=== PATIENT | female | born 1995 | race Caucasian/White ===

== ENCOUNTER 2018-08-15 07:30 | Emergency (ER) | payer OTHER ==
[2018-08-15 07:35] VITALS: RESP 18
[2018-08-15] MEDS ORDERED: SODIUM CHLORIDE 0.9% 2,000 ML IV STA (07:47)
--- NOTE | 2018-08-15 07:55 | ED ---
Abdominal Pain HPI - General Chief Complaint: Abdominal Pain Stated Complaint: abdominal pain Time Seen by Provider: 08/15/18 07:40 Source: patient, RN notes reviewed Mode of arrival: ambulatory Limitations: no limitations - History of Present Illness Initial Comments: 23-year-old female presents emergency Department with chief complaint of upper abdominal pain. Patient states it has been worse over the last 2 weeks. She states initially she thought it was because she ate some bad food. Patient states that is not alleviated she states that she's tried Tums Mylanta Maalox, milk of magnesia patient that she is constipated she did have some mild relief with the and antacids but not full relief. Patient states that when she eats anything symptoms worsen. Patient had no fevers or chills. No back pain or flank pain no chest pain or shortness of breath. Denies any chance . - Related Data Previous Rx's Medication Instructions Recorded Omeprazole [PriLOSEC] 20 mg PO AC-BRKFST #14 cap 08/15/18 Ondansetron Odt [Zofran Odt] 4 mg PO Q8HR PRN #10 tab 08/15/18 Allergies Allergy/AdvReac Type Severity Reaction Status Date / Time No Known Allergies Allergy Verified 08/15/18 07:59 Review of Systems ROS Statement: Those systems with pertinent positive or pertinent negative responses have been documented in the HPI. ROS Other: All systems not noted in ROS Statement are negative. Past Medical History Past Medical History: No Reported History History of Any Multi-Drug Resistant Organisms: None Reported Past Surgical History: No Surgical Hx Reported Past Psychological History: Depression Smoking Status: Current every day smoker Past Alcohol Use History: Occasional Past Drug Use History: Marijuana - Past Family History Mother Family Medical History: No Reported History (Mother is 42-year-old has no major medical problems) Father Family Medical History: No Reported History (Father is 49-year-old has no major medical problems) Sister(s) Family Medical History: No Reported History (Patient has a sister and one half- sister) Brother(s) Family Medical History: No Reported History (Patient had a brother who at age of 22 from overdose) General Exam Limitations: no limitations General appearance: alert, in no apparent distress Head exam: Present: atraumatic, normocephalic, normal inspection Eye exam: Present: normal appearance, PERRL, EOMI. Absent: scleral icterus, conjunctival injection, periorbital swelling ENT exam: Present: normal exam, normal oropharynx, mucous membranes moist, TM's normal bilaterally Neck exam: Present: normal inspection. Absent: tenderness, meningismus, lymphadenopathy Respiratory exam: Present: normal lung sounds bilaterally. Absent: respiratory distress, wheezes, rales, rhonchi, stridor Cardiovascular Exam: Present: normal rhythm, tachycardia, normal heart sounds. Absent: systolic murmur, diastolic murmur, rubs, gallop, clicks GI/Abdominal exam: Present: soft, tenderness (Mild right upper quadrant), normal bowel sounds. Absent: distended, guarding, rebound, rigid Back exam: Absent: CVA tenderness (R), CVA tenderness (L) Skin exam: Present: warm, dry, intact, normal color. Absent: rash Course Vital Signs 08/15/18 07:31 Temperature 99.0 F Pulse Rate 108 H Respiratory 18 Rate Blood Pressure 165/95 O2 Sat by Pulse 95 Oximetry Medical Decision Making - Medical Decision Making This a 23-year-old female presented for abdominal pain, intermittent nausea vomiting diarrhea. Patient has evidence of colitis ices without evidence of acute cholecystitis. Patient is stable for discharge with follow for cholecystectomy. Patient will be discharged with Zofran, omeprazole. Patient will be discharged return parameters were discussed. - Lab Data Result diagrams: 08/15/18 07:57 08/15/18 07:57 Lab Results 08/15/18 08/15/18 08/15/18 Range/Units 07:57 07:57 07:57 WBC 12.9 H (3.8-10.6) k/uL RBC 4.95 (3.80-5.40) m/uL Hgb 12.7 (11.4-16.0) gm/dL Hct 39.1 (34.0-46.0) % MCV 79.0 L (80.0-100.0) fL MCH 25.6 (25.0-35.0) pg MCHC 32.4 (31.0-37.0) g/dL RDW 14.5 (11.5-15.5) % Plt Count 424 (150-450) k/uL Neutrophils % 77 % Lymphocytes % 15 % Monocytes % 4 % Eosinophils % 1 % Basophils % 0 % Neutrophils # 9.9 H (1.3-7.7) k/uL Lymphocytes # 2.0 (1.0-4.8) k/uL Monocytes # 0.5 (0-1.0) k/uL Eosinophils # 0.2 (0-0.7) k/uL Basophils # 0.0 (0-0.2) k/uL Sodium 140 (137-145) mmol/L Potassium 4.2 (3.5-5.1) mmol/L Chloride 106 (98-107) mmol/L Carbon Dioxide 24 (22-30) mmol/L Anion Gap 10 mmol/L BUN 9 (7-17) mg/dL Creatinine 0.52 (0.52-1.04) mg/dL Est GFR (CKD-EPI)AfAm >90 (>60 ml/min/1.73 sqM) Est GFR (CKD-EPI)NonAf >90 (>60 ml/min/1.73 sqM) Glucose 117 H (74-99) mg/dL Calcium 9.5 (8.4-10.2) mg/dL Total Bilirubin 0.4 (0.2-1.3) mg/dL AST 20 (14-36) U/L ALT 36 (9-52) U/L Alkaline Phosphatase 91 (38-126) U/L Total Protein 7.6 (6.3-8.2) g/dL Albumin 4.5 (3.5-5.0) g/dL Amylase 57 (30-110) U/L Lipase 48 (23-300) U/L Urine Color Yellow Urine Appearance Clear (Clear) Urine pH 6.0 (5.0-8.0) Ur Specific Gustavus 1.028 (1.001-1.035) Urine Protein Trace H (Negative) Urine Glucose (UA) Negative (Negative) Urine Ketones Negative (Negative) Urine Blood Negative (Negative) Urine Nitrite Negative (Negative) Urine Bilirubin Negative (Negative) Urine Urobilinogen <2.0 (<2.0) mg/dL Ur Leukocyte Esterase Negative (Negative) Urine HCG, Qual (Not Detectd) 08/15/18 Range/Units 07:57 WBC (3.8-10.6) k/uL RBC (3.80-5.40) m/uL Hgb (11.4-16.0) gm/dL Hct (34.0-46.0) % MCV (80.0-100.0) fL MCH (25.0-35.0) pg MCHC (31.0-37.0) g/dL RDW (11.5-15.5) % Plt Count (150-450) k/uL Neutrophils % % Lymphocytes % % Monocytes % % Eosinophils % % Basophils % % Neutrophils # (1.3-7.7) k/uL Lymphocytes # (1.0-4.8) k/uL Monocytes # (0-1.0) k/uL Eosinophils # (0-0.7) k/uL Basophils # (0-0.2) k/uL Sodium (137-145) mmol/L Potassium (3.5-5.1) mmol/L Chloride (98-107) mmol/L Carbon Dioxide (22-30) mmol/L Anion Gap mmol/L BUN (7-17) mg/dL Creatinine (0.52-1.04) mg/dL Est GFR (CKD-EPI)AfAm (>60 ml/min/1.73 sqM) Est GFR (CKD-EPI)NonAf (>60 ml/min/1.73 sqM) Glucose (74-99) mg/dL Calcium (8.4-10.2) mg/dL Total Bilirubin (0.2-1.3) mg/dL AST (14-36) U/L ALT (9-52) U/L Alkaline Phosphatase (38-126) U/L Total Protein (6.3-8.2) g/dL Albumin (3.5-5.0) g/dL Amylase (30-110) U/L Lipase (23-300) U/L Urine Color Urine Appearance (Clear) Urine pH (5.0-8.0) Ur Specific Gustavus (1.001-1.035) Urine Protein (Negative) Urine Glucose (UA) (Negative) Urine Ketones (Negative) Urine Blood (Negative) Urine Nitrite (Negative) Urine Bilirubin (Negative) Urine Urobilinogen (<2.0) mg/dL Ur Leukocyte Esterase (Negative) Urine HCG, Qual Not Detected (Not Detectd) Disposition Clinical Impression: Abdominal pain, Cholelithiasis Disposition: HOME SELF-CARE Condition: Stable Instructions (If sedation given, give patient instructions): Gallstones (ED), Low Fat Diet (ED) Additional Instructions: Please return to the Emergency Department if symptoms worsen or any other concer ns. Prescriptions: Omeprazole [PriLOSEC] 20 mg PO AC-BRKFST #14 cap Ondansetron Odt [Zofran Odt] 4 mg PO Q8HR PRN #10 tab PRN Reason: Nausea Is patient prescribed a controlled substance at d/c from ED?: No Referrals: None,Stated [Primary Care Provider] - 1-2 days Mane Dias MD [STAFF PHYSICIAN] - 1-2 days Time of Disposition: 09:32
[2018-08-15 08:11] LABS: Basophils % (A) 0 %; Eosinophils # (A) 0.2 k/uL (0-0.7); Eosinophils % (A) 1 %; HCT 39.1 % (34.0-46.0); HGB 12.7 gm/dL (11.4-16.0); Lymphocytes % (A) 15 %; MCH 25.6 pg (25.0-35.0); MCHC 32.4 g/dL (31.0-37.0); Mean Platelet Volume 6.3; Monocytes # (A) 0.5 k/uL (0-1.0); Monocytes % (A) 4 %; Neutrophils # (A) 9.9 k/uL (1.3-7.7); Neutrophils % (A) 77 %; Platelet Count 424 k/uL (150-450); RBC 4.95 m/uL (3.80-5.40); RDW 14.5 % (11.5-15.5); WBC 12.9 k/uL (3.8-10.6)
[2018-08-15 08:15] LABS: Appearance,Urine Clear (Clear); Bilirubin,Urine Negative (Negative); Blood,Urine Negative (Negative); Color,Urine Yellow; Glucose,Urine (UA) Negative (Negative); Ketones,Urine Negative (Negative); Leukocyte Esterase,Urine Negative (Negative); Nitrite,Urine Negative (Negative); Protein,Urine Trace (Negative); Specific Gravity,Urine 1.028 (1.001-1.035); Urobilinogen,Urine <2.0 mg/dL (<2.0)
[2018-08-15 08:20] LABS: ALT 36 U/L (9-52); AST 20 U/L (14-36); Albumin 4.5 g/dL (3.5-5.0); Alkaline Phosphatase 91 U/L (38-126); Amylase 57 U/L (30-110); Anion Gap 10 mmol/L; Blood Urea Nitrogen 9 mg/dL (7-17); Calcium 9.5 mg/dL (8.4-10.2); Carbon Dioxide 24 mmol/L (22-30); Chloride 106 mmol/L (98-107); Glucose 117 mg/dL (74-99); Lipase 48 U/L (23-300); Potassium 4.2 mmol/L (3.5-5.1); Sodium 140 mmol/L (137-145); Total Bilirubin 0.4 mg/dL (0.2-1.3); Total Protein 7.6 g/dL (6.3-8.2)
--- NOTE | 2018-08-15 08:50 | US ---
EXAMINATION TYPE: US gallbladder DATE OF EXAM: 08/15/2018 COMPARISON: NONE CLINICAL HISTORY: Pain. RUQ pain and N/V x 2 weeks EXAM MEASUREMENTS: Liver Length: 18.7 cm Gallbladder Wall: 0.2 cm CBD: 0.7 cm Right Kidney: 11.8 x 5.4 x 5.3 cm Pancreas: visualized portions wnl, partially obscured by overlying midline bowel gas Liver: Increased attenuation Gallbladder: hydropic, multiple echogenic shadowing stones with 1.8cm stone within neck, wall measur es wnl Evidence for sonographic Myers's sign: yes CBD: Minimally dilated Right Kidney: wnl The visualized pancreas shows no worrisome mass or ductal dilatation though portions are suboptimally evaluated-weighted as there is overlying bowel gas per technologist. Visualized liver is heterogeneo us without intrahepatic ductal dilatation. Evaluation for focal masses is suboptimal due to the heter ogeneity. Findings suspect basis of early diffuse fatty infiltration. Gallbladder is seen with large shadowing mobile gallstone. There is nonmobile shadowing stone towards the gallbladder neck. There is no pericholecystic fluid or abnormal gallbladder wall thickening. Common bile duct measures 7 mm whi ch is minimally dilated. IMPRESSION: Gallstones without definitive secondary ultrasound evidence for acute cholecystitis howev er in patient with pain and vomiting and positive sonographic Myers's sign it cannot be excluded. Co nsider HIDA scan or surgical exploration based on degree of clinical suspicion.
[2018-08-15 10:09] VITALS: BP 137/104; PULSE 81; TEMP 98.7
== END 2018-08-15 10:05 | disposition home or self-care (01) ==
LOC: EC 07:30
DX: K80.20 Calculus of gallbladder without cholecystitis without obstruction (principal); F17.200 Nicotine dependence, unspecified, uncomplicated
CPT/HCPCS: 36415; 76705; 80053; 81003; 81025; 82150; 83690; 85025; 96360; 96361; 99284

== ENCOUNTER 2018-08-31 07:37 | Day surgery (SDC) | payer OTHER ==
[2018-08-26 11:48] VITALS: BMI 39.0
[~2018-08-31 07:37] MED LIST: DEXAMETHASONE SOD PHOSPHATE 10 MG/ML 1 ML VIAL IV ONE; HEPARIN SODIUM,PORCINE 5,000 UNIT/ML 1 ML VIAL SQ ONE; LACTATED RINGERS 1,000 ML IV SCH; LIDOCAINE 1% 20 ML VIAL (10MG/ML) FOR IV START INTRADERMA PRN; MIDAZOLAM 2 MG/2 ML VIAL IV PRN; ceFAZolin IN SWFI 2 GM/20 ML SYRINGE IVP ONE; fentaNYL (PF) 50 MCG/ML 2 ML AMP IV PRN
[2018-08-31] MEDS ORDERED: ONDANSETRON 4 MG/2 ML VIAL IVP ONE (08:35)
--- NOTE | 2018-08-31 09:21 | P.GSHP ---
History of Present Illness H&P Date: 08/31/18 Chief Complaint: Right upper quadrant pain This a 23-year-old female who presents today for laparoscopic cholecystectomy. Patient is a complete upper quadrant pain. Her recent ultrasound shows evidence of cholelithiasis. Past Medical History Past Medical History: No Reported History History of Any Multi-Drug Resistant Organisms: None Reported Past Surgical History: No Surgical Hx Reported Additional Past Anesthesia/Blood Transfusion Reaction / Comment(s): Has never had general anesthesia. Past Psychological History: Anxiety, Depression Smoking Status: Current every day smoker Past Alcohol Use History: Occasional Additional Past Alcohol Use History / Comment(s): Has been smoking 4 yrs, 1 pack Q3-4 days. Past Drug Use History: Marijuana Additional Drug Use History / Comment(s): Uses Marijuana 1-2X/month. - Past Family History Mother Family Medical History: No Reported History Father Family Medical History: No Reported History Sister(s) Family Medical History: No Reported History Brother(s) Family Medical History: No Reported History Medications and Allergies Home Medications Medication Instructions Recorded Confirmed Type No Known Home Medications 08/26/18 08/31/18 History Allergies Allergy/AdvReac Type Severity Reaction Status Date / Time No Known Allergies Allergy Verified 08/31/18 08:11 Surgical - Exam Vital Signs Temp Pulse Resp BP Pulse Ox 98.5 F 84 16 144/74 97 08/31/18 08:22 08/31/18 08:22 08/31/18 08:22 08/31/18 08:22 08/31/18 08:22 - General well developed, well nourished, no distress - Eyes PERRL - ENT normal pinna - Neck no masses - Respiratory normal expansion - Cardiovascular Rhythm: regular - Abdomen Abdomen: soft, non tender Assessment and Plan Assessment: Cholelithiasis Chronic cholecystitis We'll perform laparoscopic cholecystectomy.
[2018-08-31] MEDS ORDERED: ROCURONIUM BROMIDE 10 MG/ML 10 ML VIAL IV ONE (09:42)
[2018-08-31] MEDS ORDERED: GLYCOPYRROLATE 0.2 MG/ML 2 ML VIAL ONE (09:42)
[2018-08-31] MEDS ORDERED: KETOROLAC 30 MG/ML 1 ML VIAL ONE (09:42)
[2018-08-31] MEDS ORDERED: MIDAZOLAM 2 MG/2 ML VIAL ONE (09:42)
[2018-08-31] MEDS ORDERED: SUCCINYLCHOLINE CHLORIDE VIAL 200 MG/10 ML VIAL IV ONE (09:42)
[2018-08-31] MEDS ORDERED: fentaNYL (PF) 50 MCG/ML 2 ML AMP ONE (09:42)
[2018-08-31] MEDS ORDERED: NEOSTIGMINE 1 MG/ML 10 ML VIAL ONE (09:42)
[2018-08-31] MEDS ORDERED: LIDOCAINE 1% INJ 10MG/ML (20 ML MDV) ONE (09:42)
[2018-08-31] MEDS ORDERED: PROPOFOL 10 MG/ML 20 ML VIAL IV ONE (09:42)
[2018-08-31] MEDS ORDERED: BUPIVACAIN-EPI 0.5%-1:200,000 30 ML VIAL SQ ONE ×2 (09:47→10:08)
--- NOTE | 2018-08-31 10:44 | P.OP ---
Date of Procedure: 08/31/18 Preoperative Diagnosis: Cholecystitis Postoperative Diagnosis: Acute cholecystitis Hydropic gallbladder Cholelithiasis Procedure(s) Performed: Laparoscopic cholecystectomy Anesthesia: CORINNA Surgeon: Mane Dias Estimated Blood Loss (ml): 5 Pathology: other (Gallbladder) Condition: stable Disposition: PACU Description of Procedure: The patient was placed on the operating table. The patient received a general endotracheal tube anesthesia. The patients abdomen was prepped and draped in the usual sterile fashion. Through an infraumbilical stab incision, the fascia of the anterior abdominal wall was grasped with a pair of Kochers and then the Veress needle was placed in the peritoneal cavity. Position of the Veress needle was confirmed with positive drop test. The abdomen was then insufflated. After adequate insufflation, the 10 mm trocar was placed in the peritoneal cavity. Following this the laparoscope was placed in the peritoneal cavity. The patient was placed in the head-up, right side up position and then a 5 mm trocar was placed in the right lateral and right subcostal position under direct visualization. A 8 mm trocar was placed in the epigastric position. The gallbladder was hydropic. He was quite inflamed. The omentum was adhesed to gallbladder. This was lysed with sharp dissection and electrocautery. The gallbladder was so distended it could not be grasped. Using Harmonic scissors and opening was made in the gallbladder and the gallbladder was aspirated. There was a significant amount mucus in the gallbladder. The gallbladder wall was quite thick. The gallbladder was grasped in the fundus and infundibulum. Traction on the gallbladder was placed in the lateral and the cephalad positions. The triangle of Calot was visualized.. The cystic duct was bluntly dissected until the union of the cystic duct and common bile duct was seen. A critical view of safety was achieved. The cystic duct was then divided and sealed with the Harmonic scissors. A PDS Endoloop was then placed throughout the cystic duct stump. The cystic artery divided and sealed with the Harmonic scissors. The gallbladder was then removed from the liver bed using Harmonic scissors. The gallbladder was then extracted through the epigastric port site. Operative field was checked for any bleeding spots and Harmonic scissors was used to coagulate the liver bed. The abdomen was irrigated. The trocars were removed. The skin was closed using interrupted 3-0 Vicryl suture. Dermabond dressing were applied. The patient tolerated the procedure well.
[2018-08-31 10:54] VITALS: TEMP 97
[2018-08-31] MEDS ORDERED: LACTATED RINGERS 1,000 ML IV ONE (11:30)
[2018-08-31 12:16] VITALS: BP 120/80; PULSE 89; RESP 18
== END 2018-08-31 12:52 | disposition home or self-care (01) ==
LOC: OR 07:37
PROVIDERS: ATTEND Surgery
DX: K80.12 Calculus of gallbladder with acute and chronic cholecystitis without obstruction (principal); F17.210 Nicotine dependence, cigarettes, uncomplicated
CPT/HCPCS: 81025; 88304

== ENCOUNTER → 2022-10-08 | Outpatient (CLI) | payer MEDICAID, OTHER ==
--- NOTE | 2022-10-08 15:16 | US ---
EXAMINATION TYPE: US OB >= 14 wk fetus DATE OF EXAM: 10/08/2022 COMPARISON: None CLINICAL INDICATION: Female, 27 years old with history of Z36.89 ENCOUNTER FOR OTHER SPECIFIED ANTENA DONALDO SCR; confirm dates TECHNIQUE: Transabdominal (TA) GESTATIONAL AGE / DATING Dates by First Scan: (14 weeks/3 days) EDC: 04/05/23 Dates by Current Scan: (15 weeks/0 days) EDC: 04/01/23 SURVEY IUP: Single PLACENTA: Anterior PREVIA: No Previa PHILLIP: 11.9 cm Normal CERVICAL LENGTH (transabdominal: norm > 3.0cm): 4.2 cm BIOMETRY PRESENTATION: Vertex LIE: Longitudinal BPD: 2.9 cm 15 weeks / 2 days HC: 10.5 cm 15 weeks / 0 days AC: 8.9 cm 15 weeks / 1 days FL: 1.5 cm 14 weeks / 3 days ESTIMATED WEIGHT IN GRAMS: 107 grams ESTIMATED WEIGHT IN LBS/OZ: 0 lbs. 4 oz. WEIGHT PERCENTAGE BASED ON ESTABLISHED DATES: 63% HC/AC: 1.18 Normal FL/AC: 17% HEART RATE: 165 bpm RHYTHM: Normal small cyst measured on rt ovary. Difficulty obtaining measurement for exam due to machine errors, mov ed patient to another machine to obtain measurements. IMPRESSION: Single live intrauterine gestation with estimated gestational age of 15 weeks 0 days and estimated du e date of 04/01/2023.
== END | disposition home or self-care (01) ==
LOC: RADUSWWP 13:33
PROVIDERS: ATTEND Obstetrics & Gynecology
DX: Z36.89 Encounter for other specified antenatal screening (principal); Z3A.15 15 weeks gestation of pregnancy
CPT/HCPCS: 76805

== ENCOUNTER 2023-03-16 07:52 | Inpatient (IN) | payer OTHER ==
[2023-03-16] MEDS ORDERED: TRANEXAMIC 1,000 MG/100ML-NACL 1,000 MG in EMPTY BAG 1 BAG IV PRN (08:54)
[2023-03-16] MEDS ORDERED: CARBOPROST TROMETHAMINE 250 MCG/ML 1 ML AMP IM PRN (08:54)
[2023-03-16] MEDS ORDERED: TERBUTALINE 1 MG/ML VIAL SQ PRN (08:54)
[2023-03-16] MEDS ORDERED: LIDOCAINE 0.5% (PF) 5 MG/ML (50 ML SDV) SQ PRN (08:54)
[2023-03-16] MEDS ORDERED: miSOPROStoL 200 MCG TAB PO PRN (08:54)
[2023-03-16] MEDS ORDERED: METHYLERGONOVINE 0.2 MG/ML 1 ML AMP IM PRN (08:54)
[2023-03-16] MEDS ORDERED: OXYTOCIN 10 UNIT/ML 1 ML VIAL IM PRN (08:54)
[2023-03-16] MEDS ORDERED: OXYTOCIN 30 UNITS/500 ML NS 30 UNIT in SALINE 1 500ML.BAG IV SCH (09:00)
--- NOTE | 2023-03-16 09:03 | P.HPOB ---
History of Present Illness H&P Date: 03/16/23 Chief Complaint: Spontaneous rupture membranes This is a 27-year-old female 1 para 0 with an estimated date of confinement of 03/28/2023, estimated gestational age of 38-2/7 weeks, who presented to labor and delivery with complaints of spontaneous rupture membranes at 6:30 AM this morning. She denies feeling any strong contractions. Her course was essentially uncomplicated. Her 36 week ultrasound gave an estimated weight of 7 lbs. 9 oz. at greater than 90th percentile. She was scheduled for another ultrasound tomorrow to determine whether or not we would schedule section after 39 weeks. She is currently okay with proceeding with labor but does understand there is a possibility of the need for delivery if she fails to progress for fails to descend. Her 1 hour Glucola was elevated at 160 but 3 hour Glucola was within normal limits. Her blood pressures were elevated initially in triage. She denies any current headaches blurry vision or epigastric pain. labs: Group B streptococcus-negative One hour Glucola-160 Three-hour Glucola-within normal limits Hemoglobin-13.1 Blood type-B+ Antibody screen-negative Rubella-immune Toxoplasma-negative RPR-nonreactive HIV-nonreactive Hepatitis C antibody-nonreactive GC/Chlamydia/Trichomonas-negative Obstetrical history: . Gynecologic history: No history of section diseases. Social history: She is single. She is unemployed. Review of Systems Constitutional: Denies chills, Denies fever Eyes: denies blurred vision, denies pain Ears, nose, mouth and throat: Denies headache, Denies sore throat Cardiovascular: Denies chest pain, Denies shortness of breath Respiratory: Denies cough Gastrointestinal: Reports abdominal pain (Contractions, irregular) Genitourinary: Reports pelvic pain, Reports Musculoskeletal: Reports low back pain Integumentary: Denies pruritus, Denies rash Neurological: Denies numbness, Denies weakness Psychiatric: Reports anxiety, Reports depression Past Medical History Past Medical History: No Reported History History of Any Multi-Drug Resistant Organisms: None Reported Past Surgical History: Cholecystectomy Past Anesthesia/Blood Transfusion Reactions: No Reported Reaction Additional Past Anesthesia/Blood Transfusion Reaction / Comment(s): Has never had general anesthesia. Past Psychological History: Anxiety, Depression Smoking Status: Former smoker Past Alcohol Use History: None Reported Past Drug Use History: Marijuana (Quit with ) - Past Family History Mother Family Medical History: No Reported History Father Family Medical History: Diabetes Mellitus, Hypertension Sister(s) Family Medical History: No Reported History Brother(s) Family Medical History: No Reported History Medications and Allergies Home Medications Medication Instructions Recorded Confirmed Type No Known Home Medications 03/16/23 03/16/23 History Allergies Allergy/AdvReac Type Severity Reaction Status Date / Time No Known Allergies Allergy Verified 03/16/23 08:15 Exam Osteopathic Statement: *. No significant issues noted on an osteopathic structural exam other than those noted in the History and Physical/Consult. Vital Signs Temp Pulse Resp BP Pulse Ox 03/16/23 08:14 97.9 F 116 H 16 138/101 97 Intake and Output 03/15/23 03/16/23 03/16/23 22:59 06:59 14:59 Other: Weight 140.614 kg HEENT: Within normal limits Heart: Regular rate and rhythm Lungs: Clear to auscultation bilaterally Abdomen: Cervix: 1-1/2 cm/60%/-2 station with grossly ruptured clear fluid. Amnisure-positive Extremities: Negative Homans heart tones: Category 1 Contractions: Every 2-3 minutes Assessment and Plan (1) 38 weeks gestation of Current Visit: Yes Status: Acute Code(s): Z3A.38 - 38 WEEKS GESTATION OF SNOMED Code(s): 73584126 (2) Spontaneous rupture of membranes Current Visit: Yes Status: Acute Code(s): LKC3039 - SNOMED Code(s): 079721195 (3) Elevated blood pressure complicating in third trimester, antepartum Current Visit: Yes Status: Acute Code(s): O16.3 - UNSPECIFIED MATERNAL HYPERTENSION, THIRD TRIMESTER SNOMED Code(s): 96099224 Plan: Will admit for early active labor. We'll obtain preeclamptic labs. We'll start oxytocin augmentation of labor. I had a discussion with the patient and she is fine with continuing with proceeding towards vaginal delivery at this time. If there is any dystocia of labor, the threshold for calling for delivery may be slightly lower.
[2023-03-16] MEDS: LACTATED RINGERS 1,000 ML IV SCH ×3 (09:38→20:05)
[2023-03-16 09:49] LABS: Basophils % (A) 0 %; Eosinophils # (A) 0.1 k/uL (0-0.7); Eosinophils % (A) 1 %; HCT 30.5 % (34.0-46.0); HGB 10.2 gm/dL (11.4-16.0); Hypochromasia Slight; Lymphocytes # (A) 2.6 k/uL (1.0-4.8); Lymphocytes % (A) 19 %; MCHC 33.5 g/dL (31.0-37.0); MCV 74.8 fL (80.0-100.0); Mean Platelet Volume 8.4; Microcytosis Slight; Monocytes # (A) 0.6 k/uL (0-1.0); Monocytes % (A) 4 %; Neutrophils # (A) 9.9 k/uL (1.3-7.7); Neutrophils % (A) 74 %; Platelet Count 317 k/uL (150-450); Poikilocytosis Slight; RBC 4.08 m/uL (3.80-5.40); WBC 13.4 k/uL (3.8-10.6)
[2023-03-16 10:09] LABS: ALT 76 U/L (4-34); AST 54 U/L (14-36); African American GFR (CKD) >90 (>60 ml/min/1.73 sqM); Blood Urea Nitrogen 7 mg/dL (7-17); Non-African American GFR(CKD) >90 (>60 ml/min/1.73 sqM); Uric Acid 3.5 mg/dL (3.7-7.4)
[2023-03-16 10:55] LABS: Creatinine,Urine Random 303.1 mg/dL; Protein/Creatinine Ratio,Urine 0.129
[2023-03-16] MEDS ORDERED: NALBUPHINE 10 MG/ML (10 ML MDV) IV PRN (17:28)
--- NOTE | 2023-03-16 17:42 | P.MSEPDOC ---
Presenting Problems - Arrival Data Date of Arrival on Unit: 03/16/23 Time of Arrival on Unit: 08:30 Mode of Transport: Ambulatory - Complaint OB-Reason for Admission/Chief Complaint: Rule Out SROM Comment: clear fluid 629 Medical History - Information : 1 Para: 0 Term: 0 : 0 Abortions: Spontaneous or Elective: 0 Number of Living Children: 0 - Gestational Age Gestational Age by GEN (wks/days): 38 Weeks and 2 Days Review of Systems - Review of Systems Constitutional: No problems Breast: No problems ENT: No problems Cardiovascular: No problems Respiratory: No problems Gastrointestinal: No problems Genitourinary: No problems Musculoskeletal: No problems Neurological: No problems Skin: No problems Vital Signs - Temperature Temperature: 97.4 F Temperature Source: Oral - Pulse Right Pulse Rate: 111 Pulse Assessment Method: Automatic Cuff - Respirations Respiratory Rate: 14 Oxygen Delivery Method: Room Air - Blood Pressure Right Arm Blood Pressure: 130/90 Blood Pressure Mean: 103 Blood Pressure Source: Automatic Cuff Medical Screen Scoring - Cervical Exam Dilation (cm): 1 Effacement (%): 50 Station: -3 Membranes: Ruptured - Uterine Contractions Frequency From (mins): 2 Frequency To (mins): 3 Duration From (seconds): 60 Duration To (seconds): 80 Intensity: Mild Resting: Soft to palpation - Assessment - Baby A Baseline FHR: 155 Heart Rate - NICHD Category: Category I (Normal) NST: Reactive Physician Notification - Physician Notified Physician Notified Date: 03/16/23 Physician Notified Time: 08:30 Physician: Shereen Johnson Order Received: Yes (admit augmentation pitocin, PIH labs) Maternal Triage Index - Non-Urgent/Priority 4 Non-Urgent Priority 4: Yes Criteria Met for Priority 4: 38.2 SROM Disposition - Disposition OB Disposition: Admit, LDRP Suite I agree with the RN Medical Screening Exam: Yes Case reviewed; plan agreed upon as documented in EMR&OBIX.: Yes Diagnosis: ENCOUNTER FOR FULL-TERM UNCOMPLICATED DELIVERY Additional Diagnoses: Gestational htn
[2023-03-16] MEDS ORDERED: SODIUM CHLORIDE 0.9% 250 ML BAG ONE (19:40)
[2023-03-16] MEDS ORDERED: fentaNYL (PF) 50 MCG/ML 5 ML AMP ONE (19:40)
[2023-03-16] MEDS ORDERED: ROPIVACAINE 5 MG/ML 30 ML VIAL ONE (19:40)
[2023-03-16] MEDS ORDERED: AMPICILLIN 2,000 MG in SODIUM CHLORIDE 0.9% 100 ML IVPB ONE (22:00)
[2023-03-17] MEDS ORDERED: AMPICILLIN 1,000 MG in SODIUM CHLORIDE 0.9% 50 ML IVPB SCH (02:00)
[2023-03-17] MEDS ORDERED: HYDROCORTISONE 2.5% RECTAL CREAM 30 GM TUBE RECTAL PRN (04:28)
[2023-03-17] MEDS ORDERED: LANOLIN CREAM 5 GM TUBE TOPICAL PRN (04:28)
[2023-03-17] MEDS ORDERED: ACETAMINOPHEN TAB 325 MG TAB PO PRN (04:28)
[2023-03-17] MEDS ORDERED: ZOLPIDEM 5 MG TAB PO PRN (04:28)
[2023-03-17] MEDS ORDERED: diphenhydrAMINE 50 MG/ML 1 ML VIAL IVP PRN (04:28)
[2023-03-17] MEDS ORDERED: BENZOCAINE/MENTHOL SPRAY 1 GM/SPRAY AEROSOL TOPICAL PRN (04:28)
[2023-03-17] MEDS ORDERED: IBUPROFEN 600 MG TAB PO PRN (04:28)
[2023-03-17] MEDS ORDERED: SIMETHICONE 80 MG CHEWABLE PO PRN (04:28)
[2023-03-17] MEDS ORDERED: diphenhydrAMINE 25 MG CAP PO PRN (04:28)
[2023-03-17] MEDS ORDERED: bisacodyL 10 MG SUPP RECTAL PRN (04:28)
--- NOTE | 2023-03-17 04:28 | P.PROBDLV ---
Vaginal Delivery Note - . Vaginal Delivery Note: Vaginal delivery viable female Apgars 7 and 9 delivery time 0351 hours. Please see dictated H&P per Dr. Johnson on this patient's admission. In brief summary this is a 27-year-old 1 para 0 female 38-2/7 weeks who is admitted to labor and delivery with spontaneous rupture membranes at 6:30 in the morning yesterday. Patient also had some elevated blood pressures and preeclampsia evaluation was done per Dr. Johnson. Patient had known macrosomia and wished trial of labor. 1-2 cm dilated on admission. Patient is given Pitocin induction of labor. She does not change much throughout the day. At approximately 7 or 8:00 last evening she became uncomfortable and requested an epidural for pain control. Patient gets this with good relief. Antibiotics as started at 2200 hrs. as well due to prolonged rupture. Labor progresses thereafter quickly and she gets to complete. She pushes the head to the perineum after 20 minutes. Posterior perineum is supported we have controlled delivery of the infant's head over the intact perineum. Mouth and nares are bulb suctioned. The is straight occiput anterior presentation. At this time the patient was instructed to breath, however she continues to push and spontaneously delivers the anterior and posterior shoulder and rest this infant's body. This is a vigorous viable female infant Apgars are 7 and 9 delivery time was 0351 hrs. has spontaneous respirations and good cry an d grossly appears normal. After delivery of the infant the umbilical cords doubly clamped and cut. The is laid on the mother's abdomen. I inspected the cord at this time it appears that is inserted on a membranous portion of the placenta. Patient is encouraged to push I'm able to help deliver the placenta in its entirety with maternal effort. Inspection of the placenta shows membranous insertion. Placenta appears to be intact without defects. Inspection of perineum shows second-degree laceration that is easily repaired with 3-0 Vicryl. Excellent reapproximation is noted. Estimated blood loss is approximately 100 mL. All counts are correct 3. There are no complications. and mother stable delivery room.
[2023-03-17] MEDS ORDERED: OXYTOCIN 30 UNITS/500 ML NS 30 UNIT in SALINE 1 500ML.BAG IV SCH (04:30)
[2023-03-17 05:36] VITALS: RESP 16
[2023-03-17] MEDS: SENNOSIDES-DOCUSATE SODIUM 1 EACH TAB PO SCH ×2 (08:35→20:25)
[2023-03-17] MEDS: LABETALOL 100 MG TAB PO SCH ×2 (14:03→20:25)
[2023-03-17] MEDS: LACTATED RINGERS 1,000 ML IV SCH (22:11)
[2023-03-18 00:21] VITALS: TEMP 97.9
[2023-03-18] MEDS: SENNOSIDES-DOCUSATE SODIUM 1 EACH TAB PO SCH (08:05)
[2023-03-18] MEDS: LABETALOL 100 MG TAB PO SCH (08:06)
[2023-03-18 08:11] LABS: Basophils % (A) 0 %; Eosinophils # (A) 0.1 k/uL (0-0.7); Eosinophils % (A) 1 %; HCT 29.4 % (34.0-46.0); HGB 9.5 gm/dL (11.4-16.0); Hypochromasia Moderate; Lymphocytes # (A) 3.7 k/uL (1.0-4.8); Lymphocytes % (A) 27 %; MCH 24.6 pg (25.0-35.0); MCHC 32.4 g/dL (31.0-37.0); Mean Platelet Volume 8.4; Microcytosis Slight; Monocytes # (A) 0.7 k/uL (0-1.0); Monocytes % (A) 5 %; Neutrophils # (A) 9.1 k/uL (1.3-7.7); Neutrophils % (A) 65 %; Platelet Count 267 k/uL (150-450); RBC 3.86 m/uL (3.80-5.40); RDW 14.9 % (11.5-15.5); WBC 13.9 k/uL (3.8-10.6)
[2023-03-18 08:13] VITALS: BP 149/89; PULSE 84
--- NOTE | 2023-03-18 09:25 | P.DS ---
Providers Date of admission: 03/16/23 09:08 Expected date of discharge: 03/18/23 Attending physician: Shereen Johnson Primary care physician: Stated None - Discharge Diagnosis(es) (1) 38 weeks gestation of Current Visit: Yes Status: Acute (2) Spontaneous rupture of membranes Current Visit: Yes Status: Acute (3) Elevated blood pressure complicating in third trimester, antepartum Current Visit: Yes Status: Acute Hospital Course: This is a 27 year old female 1 para 0 at 38-2/7 weeks who presented with spontaneous rupture of membranes. She is also noted to have elevated blood pressures. Preeclamptic workup was performed and protein to creatinine ratio was within normal limits however her liver enzymes were slightly elevated. She delivered vaginally a viable female on 03/17/2023 with scores of 7 at 1 minute and 9 at 5 minutes and weight of 8 lbs. 12 oz. , she did start having some elevated blood pressures and was started on labetalol 100 mg twice a day. This has kept her blood pressures fairly well controlled. She denies any other symptoms. Lochia is decreasing. Pain is well-controlled. She is breast-feeding. Vital signs are stable. Abdomen is soft with fundus firm and nontender. Extremities show negative Homans. Impression is status post vaginal delivery day #1, gestational hypertension. Plan is to discharge home today. Routine instructions are given. She will be given a prescription for ibuprofen and labetalol 100 mg twice a day. She is advised to follow up in the office in approximately 1 week for a blood pressure check and in 6 weeks for a check. She is advised to call the office if she has any further questions or concerns prior to her appointment time. Procedures: Spontaneous vaginal delivery of a viable female infant on 03/17/2023 Patient Condition at Discharge: Stable Plan - Discharge Summary New Discharge Prescriptions: New Ibuprofen [Motrin] 600 mg PO Q6HR PRN #60 tab PRN Reason: Mild Pain (Scale 1 To 3) Labetalol [Trandate] 100 mg PO BID #60 tab Discharge Medication List Ibuprofen [Motrin] 600 mg PO Q6HR PRN #60 tab 03/18/23 [Rx] Labetalol [Trandate] 100 mg PO BID #60 tab 03/18/23 [Rx] Follow up Appointment(s)/Referral(s): Shereen Johnson DO [Doctor of Osteopathic Medicine] - 04/20/23 11:30 am (Follow-up in 1 week for a blood pressure check) Activity/Diet/Wound Care/Special Instructions: Instructions 1. Do not begin any exercise program for 3 weeks. 2. Do not resume sexual relations for 3 weeks or longer if uncomfortable. 3. You may take tub baths or showers at any time. 4. You may use tampons if desired after 3 weeks. 5. Keep the area of episiotomy (stitches) clean and dry. 6. If you are not nursing, wear a good fitting, supportive bra during the day and limit fluid intake for at least 1 week to prevent breast engorgement. 7. Call the office, [phone], within the next week to make appointment for your 6 week checkup if it has not already been made. 8. Report any of the following occurrences to the doctor promptly: a. Heavy, excessive bleeding b. Chills, fever c. Burning or frequency of urination d. Pain or redness and breasts if nursing e. Increasing pain or swelling in episiotomy (stitches). In addition to the above instructions, the following additional should be followed: 1. No heavy lifting or straining (exercising) until after 6 week checkup. 2. Keep abdominal incision clean and dry: You may wear a dressing if more comfortable. 3. Make office appointment for 10 days after going home or as instructed by her doctor. Discharge Disposition: HOME SELF-CARE
== END 2023-03-18 15:45 | disposition home or self-care (01) | DRG 560 ==
LOC: FBPOP 07:52 → 4FBP 09:08
PROVIDERS: ADMIT Obstetrics & Gynecology; ATTEND Obstetrics & Gynecology
PROC: 10E0XZZ Delivery of Products of Conception, External Approach (ICD-10-PCS; principal; 2023-03-17)
PROC: 0KQM0ZZ Repair Perineum Muscle, Open Approach (ICD-10-PCS; 2023-03-17)
PROC: 3E033VJ Introduction of Other Hormone into Peripheral Vein, Percutaneous Approach (ICD-10-PCS; 2023-03-17)
DX: O42.92 Full-term premature rupture of membranes, unspecified as to length of time between rupture and onset of labor (principal); F32.A Depression, unspecified; F41.9 Anxiety disorder, unspecified; O36.63X0 Maternal care for excessive fetal growth, third trimester, not applicable or unspecified; O70.1 Second degree perineal laceration during delivery; O99.344 Other mental disorders complicating childbirth; Z37.0 Single live birth; Z3A.38 38 weeks gestation of pregnancy; Z82.49 Family history of ischemic heart disease and other diseases of the circulatory system; Z87.891 Personal history of nicotine dependence
CPT/HCPCS: 59025; 82565; 82570; 84112; 84156; 84450; 84460; 84520; 84550; 85025; 86850; 86900; 86901; 99213

== ENCOUNTER → 2023-06-02 | Outpatient (CLI) | payer OTHER ==
--- NOTE | 2023-06-02 15:52 | US ---
EXAMINATION TYPE: US pelvis complete transvag DATE OF EXAM: 06/02/2023 COMPARISON: NONE CLINICAL INDICATION: Female, 28 years old with history of N92.1 EXCESSIVE AND FREQUENT MENSTRUATION; patient delivered on 03/17 has had heavy bleeding and clots x 2 months after, now only has spotting TECHNIQUE: Transvaginal (TV) and Transabdominal (TA) . Transabdominal sonographic images of the pel vis were acquired. Transvaginal sonographic images were medically necessary to better assess the fol lowing anatomy: Ovaries Date of LMP: unsure EXAM MEASUREMENTS: Uterus: 8.6x4.8x6.6 cm Endometrial Stripe: 1.1 cm Right Ovary: 4.0x2.9x2.6 cm Left Ovary: 3.2x1.9x1.6 cm [employer] notes: Exam limited by bowel gas 1. Uterus: Anteverted. The myometrium is mildly heterogenous, there is focal fluid measuring 1.1 x 1.2 cm along the endocervical canal. 2. Endometrium: Echogenic heterogeneous thickening at the fundal endometrium measuring 1.9 x 1.0 x 1 .5cm. There may be some trace vascularity here. 3. Right Ovary: 2.8x2.4x2.6cm cyst 4. Left Ovary: wnl 5. Bilateral Adnexa: wnl 6. Posterior cul-de-sac: wnl IMPRESSION: 1. Heterogeneous and echogenic thickening along the fundal endometrium up to 1.9 x 1.5 x 1.0 cm. Unab le to exclude retained products of conception or retained hemorrhagic material. 2. Focal fluid along the endocervical canal measuring 1.2 x 1.1 cm in keeping with the patient's repo rted bleeding. 3. A 2.8 cm dominant follicle or functional cyst of the right ovary.
== END | disposition home or self-care (01) ==
LOC: RADUSWWP 06:52
PROVIDERS: ATTEND Obstetrics & Gynecology
DX: N83.291 Other ovarian cyst, right side (principal); N92.1 Excessive and frequent menstruation with irregular cycle; R93.89 Abnormal findings on diagnostic imaging of other specified body structures
CPT/HCPCS: 76830; 76856

== ENCOUNTER → 2023-06-21 | Outpatient (CLI) | payer OTHER ==
[2023-06-21 18:42] LABS: Basophils # (A) 0.03 X 10*3/uL (0.00-0.10); Basophils % (A) 0.5 %; Eosinophils # (A) 0.12 X 10*3/uL (0.04-0.35); Eosinophils % (A) 1.9 %; HCT 34.6 % (37.2-46.3); HGB 10.4 g/dL (12.0-15.0); Lymphocytes # (A) 2.17 X 10*3/uL (0.90-5.00); Lymphocytes % (A) 35.2 %; MCHC 30.1 g/dL (32.0-37.0); MCV 76.5 FL (80.0-97.0); Mean Platelet Volume 9.8 FL (9.5-12.2); Monocytes # (A) 0.46 X 10*3/uL (0.20-1.00); Monocytes % (A) 7.5 %; NRBC Per 100 WBC 0 X 10*3/uL (0.00-0.01); Neutrophils # (A) 3.36 X 10*3/uL (1.80-7.70); Neutrophils % (A) 54.6 %; Platelet Count 389 X 10*3/uL (140-440); RBC 4.52 X 10*6/uL (4.10-5.20); RDW 14.6 % (11.5-14.5); WBC 6.16 X 10*3/uL (4.50-10.00)
== END | disposition home or self-care (01) ==
LOC: LABPAT 10:24
PROVIDERS: ATTEND Obstetrics & Gynecology
DX: Z01.812 Encounter for preprocedural laboratory examination (principal)
CPT/HCPCS: 36415; 85025; 86850; 86900; 86901

== ENCOUNTER 2023-06-22 11:06 | Day surgery (SDC) | payer OTHER ==
--- NOTE | 2023-06-21 16:40 | P.HPOB ---
History of Present Illness H&P Date: 06/21/23 Chief Complaint: Retained products of conception This is a 28-year-old female 1 para 1 who presents for dilation and curettage with suction due to probable retained products of conception. She delivered vaginally March 17, 2023 but has continued to bleed off-and-on only stopping for about 2 days at a time. She had a pelvic ultrasound that showed uterus measuring 8.6 x 4.8 x 6.6 cm with heterogeneous endometrium measuring 1.1 cm with thickening at the fundal endometrium measuring up to 1.9 x 1.5 cm with trace vascularity. Her right ovary had a 2.8 cm follicle cyst. Obstetrical history: . History of 1 vaginal delivery at 38 weeks with complication of gestational hypertension. Gynecologic history: No history of sexually transmitted diseases. Review of Systems Constitutional: Denies chills, Denies fever Eyes: denies blurred vision, denies pain Ears, nose, mouth and throat: Denies headache, Denies sore throat Cardiovascular: Denies chest pain, Denies shortness of breath Respiratory: Denies cough Gastrointestinal: Denies abdominal pain, Denies diarrhea, Denies nausea, Denies vomiting Genitourinary: Reports abnormal vaginal bleeding, Reports menorrhagia, Denies Menstruation: Reports menses 8 or > days, Reports menses variable Musculoskeletal: Denies myalgias Integumentary: Denies pruritus, Denies rash Neurological: Denies numbness, Denies weakness Psychiatric: Reports anxiety, Reports depression Past Medical History Past Medical History: No Reported History History of Any Multi-Drug Resistant Organisms: None Reported Past Surgical History: Cholecystectomy Past Anesthesia/Blood Transfusion Reactions: No Reported Reaction Additional Past Anesthesia/Blood Transfusion Reaction / Comment(s): Has never had general anesthesia. Smoking Status: Former smoker, Vaper Past Alcohol Use History: Occasional Past Drug Use History: Marijuana - Past Family History Mother Family Medical History: No Reported History Father Family Medical History: Diabetes Mellitus, Hypertension Sister(s) Family Medical History: No Reported History Brother(s) Family Medical History: No Reported History Medications and Allergies Home Medications Medication Instructions Recorded Confirmed Type No Known Home Medications 06/16/23 06/16/23 History Allergies Allergy/AdvReac Type Severity Reaction Status Date / Time No Known Allergies Allergy Verified 03/06/24 12:17 Exam Osteopathic Statement: *. No significant issues noted on an osteopathic st ructural exam other than those noted in the History and Physical/Consult. HEENT: Within normal limits Heart: Regular rate and rhythm Lungs: Clear to auscultation bilaterally Abdomen: Soft, nontender Pelvic exam: Uterus is anteverted, nontender, with no adnexal masses or tenderness noted. Extremities: Negative Homans Assessment and Plan (1) Retained products of conception Status: Acute Code(s): [id number] - SNOMED Code(s): 091292775 Plan: Proceed with suction dilation and curettage. I have discussed the risks, benefits, and alternative therapies for the above- mentioned procedure and for both sedation/anesthesia as well as necessary blood products administration, if indicated, as they pertain to this patient. The patient has indicated her understanding and acceptance of the risks and procedures discussed.
[~2023-06-22 11:06] MED LIST changes: -DEXAMETHASONE SOD PHOSPHATE 10 MG/ML 1 ML VIAL IV ONE; -HEPARIN SODIUM,PORCINE 5,000 UNIT/ML 1 ML VIAL SQ ONE; +HYDROmorphone 0.5 MG/0.5 ML SYRINGE IVP PRN; -LACTATED RINGERS 1,000 ML IV SCH; -LIDOCAINE 1% 20 ML VIAL (10MG/ML) FOR IV START INTRADERMA PRN; -MIDAZOLAM 2 MG/2 ML VIAL IV PRN; +Pre Op ABX Message 1 EACH MISC MISCELLANE ONE; -ceFAZolin IN SWFI 2 GM/20 ML SYRINGE IVP ONE; -fentaNYL (PF) 50 MCG/ML 2 ML AMP IV PRN
[2023-06-22] MEDS: LACTATED RINGERS 1,000 ML IV SCH (11:38)
[2023-06-22] MEDS: DEXAMETHASONE SOD PHOSPHATE 4 MG/ML 1 ML VIAL IV ONE (11:51)
[2023-06-22] MEDS: ONDANSETRON 4 MG/2 ML VIAL IVP ONE (11:52)
[2023-06-22] MEDS: MIDAZOLAM 2 MG/2 ML VIAL IVP ONE (11:58)
[2023-06-22] MEDS ORDERED: PROPOFOL 10 MG/ML 20 ML VIAL IV ONE (13:05)
[2023-06-22] MEDS ORDERED: SUCCINYLCHOLINE CHLORIDE 200 MG/10 ML VIAL IV ONE (13:05)
[2023-06-22] MEDS ORDERED: fentaNYL (PF) 50 MCG/ML 2 ML AMP ONE (13:05)
[2023-06-22] MEDS ORDERED: KETOROLAC 15 MG/ML 1 ML VIAL ONE (13:05)
--- NOTE | 2023-06-22 13:32 | P.OP ---
Date of Procedure: 06/22/23 Preoperative Diagnosis: Probable retained products of conception Dysfunctional uterine bleeding Postoperative Diagnosis: Same Procedure(s) Performed: Suction dilation and curettage Anesthesia: CORINNA Surgeon: Shereen Johnson Estimated Blood Loss (ml): 5 Pathology: other (Uterine curettings, possible products of conception) Condition: stable Disposition: same day Indications for Procedure: This is a 28-year-old female 1 para 1 who presents for dilation and curettage with suction due to probable retained products of conception. She delivered vaginally March 17, 2023 but has continued to bleed off-and-on only stopping for about 2 days at a time. She had a pelvic ultrasound that showed uterus measuring 8.6 x 4.8 x 6.6 cm with heterogeneous endometrium measuring 1.1 cm with thickening at the fundal endometrium measuring up to 1.9 x 1.5 cm with trace vascularity. Her right ovary had a 2.8 cm follicle cyst. Operative Findings: Uterus is anteverted, sounded to 10 cm. A small amount of possible retained products was noted. Minimal endometrial curettings are obtained. Description of Procedure: The patient is taken to the operating room where she is placed in the dorsolithotomy position. She is prepped and draped in the normal sterile fashion. Her bladder is drained with a catheter and then removed. Examination is performed under anesthesia. Uterus is found to be anteverted with no adnexal masses palpated. Next a weighted speculum was placed in the patient's vagina. A right angle retractor was used to visualize the anterior lip of the cervix. This is grasped with an Allis clamp. Next the uterus is sounded to centimeters. Cervix is gently dilated with Amador dilators until a 9 mm curved suction curette to be placed. Suction curetting was performed with a minimal amount of tissue obtained. It did appear that there was some tissue that appeared to be possible products of conception. Next a medium size sharp curette was introduced and sharp curettage was performed with no further tissue obtained. Suction curetting was performed to remove any further clot. Allis clamp was removed and all instruments were removed from the vagina. All sponge counts are correct. Minimal bleeding is noted. Specimen is labeled endometrial curettings, possible products of conception. Patient is taken to recovery room in stable condition.
[2023-06-22 14:09] VITALS: TEMP 97.2
[2023-06-22 14:45] VITALS: BP 115/79; PULSE 72; RESP 18
== END 2023-06-22 14:43 | disposition home or self-care (01) ==
LOC: OR 11:06
PROVIDERS: ATTEND Obstetrics & Gynecology
DX: O73.1 Retained portions of placenta and membranes, without hemorrhage (principal); N93.8 Other specified abnormal uterine and vaginal bleeding; Z87.891 Personal history of nicotine dependence; Z90.49 Acquired absence of other specified parts of digestive tract
CPT/HCPCS: 58120; 81025; 88305; J2250; J0330; J1100; J2405; J3010; J1885; J2704